=== PATIENT | female | born 1960 | race Caucasian/White ===

== ENCOUNTER 2016-05-30 14:05 | Outpatient (CLI) | payer OTHER ==
[2015-10-19 11:16] VITALS: BP 104/65
== END 2016-05-30 14:15 ==
LOC: LAB 14:05
PROVIDERS: ATTEND Family Medicine
DX: Z51.81 Encounter for therapeutic drug level monitoring (principal); Z79.01 Long term (current) use of anticoagulants
CPT/HCPCS: 36415; 85610

== ENCOUNTER 2016-06-27 13:24 | Outpatient (CLI) | payer OTHER ==
[2015-10-19 11:16] VITALS: BP 104/65
== END 2016-06-27 13:25 ==
LOC: LAB 13:24
PROVIDERS: ATTEND Family Medicine
DX: Z51.81 Encounter for therapeutic drug level monitoring (principal); Z79.01 Long term (current) use of anticoagulants
CPT/HCPCS: 36415; 85610

== ENCOUNTER 2016-06-30 10:10 | Outpatient (CLI) | payer OTHER ==
[2015-10-19 11:16] VITALS: BP 104/65
[2016-06-30 10:24] LABS: BASOPHILS % 0.5 (0.0-1.5); EOSINOPHILS % 2.3 % (0.0-6.8); MEAN CORPUSCULAR HEMOGLOBIN 29.1 pg (28.0-34.0); MONOCYTES # 0.3 # k/uL (0.0-0.9); MONOCYTES % 4.2 % (0.0-11.0); NEUTROPHILS # 4.1 # k/uL (1.4-7.7)
[2016-06-30 11:06] LABS: eGFR (African) 40; eGFR (Non-African) 33
== END 2016-06-30 10:11 ==
LOC: LAB 10:10
PROVIDERS: ATTEND Family Medicine
DX: R60.0 Localized edema (principal); E03.9 Hypothyroidism, unspecified; E55.9 Vitamin D deficiency, unspecified
CPT/HCPCS: 36415; 80053; 82306; 84443; 85025

== ENCOUNTER 2016-07-28 14:36 | Outpatient (CLI) | payer OTHER ==
[2015-10-19 11:16] VITALS: BP 104/65
== END 2016-07-28 14:46 ==
LOC: LAB 14:36
PROVIDERS: ATTEND Family Medicine
DX: Z51.81 Encounter for therapeutic drug level monitoring (principal)
CPT/HCPCS: 36415; 85610

== ENCOUNTER 2016-09-01 14:35 | Outpatient (CLI) | payer OTHER ==
[2015-10-19 11:16] VITALS: BP 104/65
== END 2016-09-01 14:36 ==
LOC: LAB 14:35
PROVIDERS: ATTEND Family Medicine
DX: Z51.81 Encounter for therapeutic drug level monitoring (principal); Z79.01 Long term (current) use of anticoagulants
CPT/HCPCS: 36415; 85610

== ENCOUNTER 2016-09-26 12:20 | Outpatient (CLI) | payer OTHER ==
[2015-10-19 11:16] VITALS: BP 104/65
== END 2016-09-26 12:21 ==
LOC: LAB 12:20
PROVIDERS: ATTEND Family Medicine
DX: Z51.81 Encounter for therapeutic drug level monitoring (principal); Z79.01 Long term (current) use of anticoagulants
CPT/HCPCS: 36415; 85610

== ENCOUNTER 2016-10-17 14:58 | Outpatient (CLI) | payer OTHER ==
[2015-10-19 11:16] VITALS: BP 104/65
== END 2016-10-17 15:00 ==
LOC: LAB 14:58
PROVIDERS: ATTEND Family Medicine
DX: Z51.81 Encounter for therapeutic drug level monitoring (principal)
CPT/HCPCS: 36415; 85610

== ENCOUNTER 2016-10-27 12:48 | Outpatient (CLI) | payer OTHER ==
[2015-10-19 11:16] VITALS: BP 104/65
== END 2016-10-27 12:50 ==
LOC: LAB 12:48
PROVIDERS: ATTEND Family Medicine
DX: Z51.81 Encounter for therapeutic drug level monitoring (principal)
CPT/HCPCS: 36415; 85610

== ENCOUNTER 2016-11-14 12:50 | Outpatient (CLI) | payer OTHER ==
[2015-10-19 11:16] VITALS: BP 104/65
== END 2016-11-14 13:00 ==
LOC: LAB 12:50
PROVIDERS: ATTEND Family Medicine
DX: Z51.81 Encounter for therapeutic drug level monitoring (principal)
CPT/HCPCS: 36415; 85610

== ENCOUNTER → 2016-11-28 | Outpatient (CLI) | payer OTHER ==
[2015-10-19 11:16] VITALS: BP 104/65
== END ==
LOC: LAB 12:03
PROVIDERS: ATTEND Family Medicine
DX: Z79.01 Long term (current) use of anticoagulants (principal)
CPT/HCPCS: 36415; 85610

== ENCOUNTER 2016-12-29 12:49 | Outpatient (CLI) | payer OTHER ==
[2015-10-19 11:16] VITALS: BP 104/65
== END 2016-12-29 12:50 ==
LOC: LAB 12:49
PROVIDERS: ATTEND Family Medicine
DX: Z51.81 Encounter for therapeutic drug level monitoring (principal)
CPT/HCPCS: 36415; 85610

== ENCOUNTER 2017-01-30 14:09 | Outpatient (CLI) | payer OTHER ==
[2015-10-19 11:16] VITALS: BP 104/65
== END 2017-01-30 14:10 ==
LOC: LAB 14:09
PROVIDERS: ATTEND Family Medicine
DX: Z79.899 Other long term (current) drug therapy (principal)
CPT/HCPCS: 36415; 85610

== ENCOUNTER 2017-03-06 11:35 | Outpatient (CLI) | payer OTHER ==
[2015-10-19 11:16] VITALS: BP 104/65
== END 2017-03-06 11:36 ==
LOC: LAB 11:35
PROVIDERS: ATTEND Family Medicine
DX: Z79.01 Long term (current) use of anticoagulants (principal)
CPT/HCPCS: 36415; 85610

== ENCOUNTER 2017-04-07 14:36 | Outpatient (CLI) | payer OTHER ==
[2015-10-19 11:16] VITALS: BP 104/65
== END 2017-04-07 15:00 ==
LOC: LAB 14:36
PROVIDERS: ATTEND Family Medicine
DX: Z51.81 Encounter for therapeutic drug level monitoring (principal)
CPT/HCPCS: 36415; 85610

== ENCOUNTER 2017-04-14 09:42 | Outpatient (CLI) | payer OTHER ==
[2015-10-19 11:16] VITALS: BP 104/65
== END 2017-04-14 09:43 ==
LOC: LAB 09:42
PROVIDERS: ATTEND Family Medicine
DX: Z51.81 Encounter for therapeutic drug level monitoring (principal)
CPT/HCPCS: 36415; 85610

== ENCOUNTER 2017-05-14 13:04 | Outpatient (CLI) | payer OTHER ==
[2015-10-19 11:16] VITALS: BP 104/65
== END 2017-05-14 13:15 ==
LOC: LAB 13:04
PROVIDERS: ATTEND Family Medicine
DX: Z51.81 Encounter for therapeutic drug level monitoring (principal)
CPT/HCPCS: 36415; 85610

== ENCOUNTER → 2017-06-19 | Outpatient (CLI) | payer OTHER ==
[2015-10-19 11:16] VITALS: BP 104/65
== END ==
LOC: LAB 13:45
PROVIDERS: ATTEND Family Medicine
DX: Z51.89 Encounter for other specified aftercare (principal)
CPT/HCPCS: 36415; 85610

== ENCOUNTER 2017-07-03 14:01 | Outpatient (CLI) | payer OTHER ==
[2015-10-19 11:16] VITALS: BP 104/65
== END 2017-07-03 14:02 ==
LOC: LAB 14:01
PROVIDERS: ATTEND Family Medicine
DX: Z51.81 Encounter for therapeutic drug level monitoring (principal)
CPT/HCPCS: 36415; 85610

== ENCOUNTER 2017-08-03 14:19 | Outpatient (CLI) | payer OTHER ==
[2015-10-19 11:16] VITALS: BP 104/65
== END 2017-08-03 14:30 ==
LOC: LAB 14:19
PROVIDERS: ATTEND Family Medicine
DX: Z79.899 Other long term (current) drug therapy (principal)
CPT/HCPCS: 36415; 85610

== ENCOUNTER 2017-08-28 13:20 | Outpatient (CLI) | payer OTHER ==
[2015-10-19 11:16] VITALS: BP 104/65
== END 2017-08-28 13:25 ==
LOC: LAB 13:20
PROVIDERS: ATTEND Family Medicine
DX: Z51.81 Encounter for therapeutic drug level monitoring (principal)
CPT/HCPCS: 36415; 85610

== ENCOUNTER 2017-09-01 14:47 | Outpatient (CLI) | payer OTHER ==
[2015-10-19 11:16] VITALS: BP 104/65
== END 2017-09-01 14:50 ==
LOC: LAB 14:47
PROVIDERS: ATTEND Family Medicine
DX: Z79.899 Other long term (current) drug therapy (principal)
CPT/HCPCS: 36415; 85610

== ENCOUNTER 2017-09-09 13:31 | Outpatient (CLI) | payer OTHER ==
[2015-10-19 11:16] VITALS: BP 104/65
== END 2017-09-09 13:32 ==
LOC: LAB 13:31
PROVIDERS: ATTEND Family Medicine
DX: Z79.899 Other long term (current) drug therapy (principal)
CPT/HCPCS: 36415; 85610

== ENCOUNTER 2017-10-09 11:25 | Outpatient (CLI) | payer OTHER ==
[2015-10-19 11:16] VITALS: BP 104/65
== END 2017-10-09 12:28 ==
LOC: LAB 11:25
PROVIDERS: ATTEND Family Medicine
DX: Z51.81 Encounter for therapeutic drug level monitoring (principal)
CPT/HCPCS: 36415; 85610

== ENCOUNTER 2017-11-09 11:17 | Outpatient (CLI) | payer OTHER ==
[2015-10-19 11:16] VITALS: BP 104/65
[2017-11-09 12:01] LABS: MEAN CORPUSCULAR HEMOGLOBIN 25.5 pg (28.0-34.0); MEAN CORPUSCULAR VOLUME 87.1 fl (80.0-100.0)
[2017-11-09 12:03] LABS: BASOPHILS % 0.7 (0.0-1.5); MONOCYTES % 3.9 % (0.0-11.0)
[2017-11-09 12:04] LABS: NEUTROPHILS # 5.1 # k/uL (1.4-7.7)
[2017-11-09 12:25] LABS: eGFR (African) > 60; eGFR (Non-African) 38
== END 2017-11-09 11:18 ==
LOC: LAB 11:17
PROVIDERS: ATTEND Family Medicine
DX: Z51.81 Encounter for therapeutic drug level monitoring (principal); E03.9 Hypothyroidism, unspecified; R60.0 Localized edema
CPT/HCPCS: 36415; 80048; 84443; 85025; 85610

== ENCOUNTER 2017-11-16 10:29 | Outpatient (CLI) | payer OTHER ==
[2015-10-19 11:16] VITALS: BP 104/65
== END 2017-11-16 10:30 ==
LOC: LAB 10:29
PROVIDERS: ATTEND Family Medicine
DX: Z51.81 Encounter for therapeutic drug level monitoring (principal)
CPT/HCPCS: 36415; 85610

== ENCOUNTER 2017-11-17 13:29 | Outpatient (CLI) | payer OTHER ==
[2015-10-19 11:16] VITALS: BP 104/65
[2017-11-17 13:46] LABS: MEAN CORPUSCULAR HEMOGLOBIN 26.1 pg (28.0-34.0); MEAN CORPUSCULAR VOLUME 84.6 fl (80.0-100.0)
[2017-11-17 22:34] LABS: SERUM IRON 50 ug/dL (37-145)
== END 2017-11-17 13:30 ==
LOC: LAB 13:29
PROVIDERS: ATTEND Family Medicine
DX: D64.9 Anemia, unspecified (principal)
CPT/HCPCS: 36415; 82728; 83540; 83550; 85027

== ENCOUNTER 2017-12-29 13:45 | Outpatient (CLI) | payer OTHER ==
[2015-10-19 11:16] VITALS: BP 104/65
== END 2017-12-29 13:46 ==
LOC: LAB 13:45
PROVIDERS: ATTEND Family Medicine
DX: Z51.81 Encounter for therapeutic drug level monitoring (principal)
CPT/HCPCS: 36415; 85610

== ENCOUNTER 2018-04-30 10:45 | Outpatient (CLI) | payer OTHER ==
[2015-10-19 11:16] VITALS: BP 104/65
== END 2018-04-30 10:55 ==
LOC: LAB 10:45
PROVIDERS: ATTEND Family Medicine
DX: Z79.01 Long term (current) use of anticoagulants (principal)
CPT/HCPCS: 36415; 85610

== ENCOUNTER 2018-05-07 14:28 | Outpatient (CLI) | payer OTHER ==
[2015-10-19 11:16] VITALS: BP 104/65
== END 2018-05-08 14:30 ==
LOC: LAB 14:28
PROVIDERS: ATTEND Family Medicine
DX: Z79.01 Long term (current) use of anticoagulants (principal)
CPT/HCPCS: 36415; 85610

== ENCOUNTER 2018-06-28 12:08 | Outpatient (CLI) | payer OTHER ==
[2015-10-19 11:16] VITALS: BP 104/65
== END 2018-06-28 12:15 ==
LOC: LAB 12:08
PROVIDERS: ATTEND Family Medicine
DX: Z79.01 Long term (current) use of anticoagulants (principal)
CPT/HCPCS: 36415; 85610

== ENCOUNTER 2018-09-02 07:47 | Outpatient (CLI) | payer OTHER ==
[2015-10-19 11:16] VITALS: BP 104/65
[2018-09-02 09:18] LABS: eGFR (Non-African) > 60
[2018-09-02] MEDS ORDERED: MAGNESIUM SULFATE IV ONE (11:30)
[2018-09-02] MEDS ORDERED: SODIUM CHLORIDE 0.9% IV ONE (11:30)
== END 2018-09-02 12:54 ==
LOC: INF 07:47 → LAB 07:47 → INF 12:54
PROVIDERS: ATTEND Internal Medicine
DX: C50.919 Malignant neoplasm of unspecified site of unspecified female breast (principal); E61.2 Magnesium deficiency
CPT/HCPCS: 80053; 83735; 96365; 96366; J3475; J7030; S1016

== ENCOUNTER 2018-09-10 07:54 | Outpatient (CLI) | payer OTHER ==
[2015-10-19 11:16] VITALS: BP 104/65
[2018-09-10 08:43] LABS: eGFR (Non-African) > 60
[2018-09-10] MEDS ORDERED: SODIUM CHLORIDE 0.9% IV ONE (10:15)
[2018-09-10] MEDS ORDERED: MAGNESIUM SULFATE IV ONE (10:15)
== END 2018-09-10 07:55 ==
LOC: INF 07:54
PROVIDERS: ATTEND Internal Medicine
DX: C50.919 Malignant neoplasm of unspecified site of unspecified female breast (principal); E61.2 Magnesium deficiency
CPT/HCPCS: 80053; 83735; 96365; 96366; J3475; J7060; S1016

== ENCOUNTER 2018-10-08 08:01 | Outpatient (CLI) | payer OTHER ==
[2015-10-19 11:16] VITALS: BP 104/65
[2018-10-08 09:19] LABS: eGFR (Non-African) 34
[2018-10-08] MEDS ORDERED: MAGNESIUM SULFATE IV ONE (11:00)
[2018-10-08] MEDS ORDERED: SODIUM CHLORIDE 0.9% IV ONE (11:00)
== END 2018-10-08 08:03 ==
LOC: INF 08:01
PROVIDERS: ATTEND Internal Medicine
DX: E61.2 Magnesium deficiency (principal); C50.919 Malignant neoplasm of unspecified site of unspecified female breast
CPT/HCPCS: 36415; 80053; 83735; 96365; 96366; J3475; J7060

== ENCOUNTER 2018-10-12 08:32 | Outpatient (CLI) | payer OTHER ==
[2015-10-19 11:16] VITALS: BP 104/65
[2018-10-12 09:20] LABS: eGFR (Non-African) 38
[2018-10-12] MEDS ORDERED: MAGNESIUM SULFATE IV ONE (11:00)
[2018-10-12] MEDS ORDERED: SODIUM CHLORIDE 0.9% IV ONE (11:00)
== END 2018-10-12 15:57 | disposition home or self-care (01) ==
LOC: INF 08:32
PROVIDERS: ATTEND Internal Medicine
DX: E61.2 Magnesium deficiency (principal); C50.919 Malignant neoplasm of unspecified site of unspecified female breast
CPT/HCPCS: 36415; 80053; 83735; 96365; 96366; J3475; J7060

== ENCOUNTER 2018-10-15 08:04 | Outpatient (CLI) | payer OTHER ==
[2015-10-19 11:16] VITALS: BP 104/65
[2018-10-15 08:45] LABS: eGFR (Non-African) 44
[2018-10-15] MEDS ORDERED: SODIUM CHLORIDE 0.9% IV ONE (11:00)
[2018-10-15] MEDS ORDERED: MAGNESIUM SULFATE IV ONE (11:00)
[2018-10-15] MEDS ORDERED: POTASSIUM CHLORIDE IV ONE (11:00)
== END 2018-10-15 15:12 | disposition home or self-care (01) ==
LOC: INF 08:04
PROVIDERS: ATTEND Internal Medicine
DX: E61.2 Magnesium deficiency (principal); C50.919 Malignant neoplasm of unspecified site of unspecified female breast
CPT/HCPCS: 36415; 80053; 83735; 96365; 96366; J3475; J3480; J7060

== ENCOUNTER 2018-10-22 08:20 | Outpatient (CLI) | payer OTHER ==
[2015-10-19 11:16] VITALS: BP 104/65
[2018-10-22] MEDS ORDERED: MAGNESIUM SULFATE/D5W 1 GM/100 ML PIGGYBACK IV ONE (10:00)
[2018-11-24 11:38] LABS: eGFR (Non-African) > 60
[2018-11-24 11:39] LABS: MAGNESIUM 0.9 mIU/l (1.6-2.3)
== END 2018-10-22 12:00 ==
LOC: INF 08:20
PROVIDERS: ATTEND Internal Medicine
DX: E61.2 Magnesium deficiency (principal); C50.919 Malignant neoplasm of unspecified site of unspecified female breast
CPT/HCPCS: 80053; 83735; J3475

== ENCOUNTER 2018-10-26 08:10 | Outpatient (CLI) | payer OTHER ==
[2015-10-19 11:16] VITALS: BP 104/65
[2018-10-26] MEDS ORDERED: MAGNESIUM SULFATE/D5W 1 GM/100 ML PIGGYBACK IV ONE (08:48)
[2018-11-14 12:04] LABS: eGFR (Non-African) 44
== END 2018-10-26 15:15 | disposition home or self-care (01) ==
LOC: INF 08:10
PROVIDERS: ATTEND Internal Medicine
DX: E61.2 Magnesium deficiency (principal); C50.919 Malignant neoplasm of unspecified site of unspecified female breast
CPT/HCPCS: 36415; 80053; 83735; 96365; 96366; J3475

== ENCOUNTER 2018-10-29 08:15 | Outpatient (CLI) | payer OTHER ==
[2015-10-19 11:16] VITALS: BP 104/65
[2018-10-29] MEDS ORDERED: MAGNESIUM SULFATE/D5W 1 GM/100 ML PIGGYBACK IV ONE (08:48)
[2018-11-18 11:26] LABS: eGFR (Non-African) 44
== END 2018-10-29 12:50 | disposition home or self-care (01) ==
LOC: INF 08:15
PROVIDERS: ATTEND Internal Medicine
DX: E61.2 Magnesium deficiency (principal); C50.919 Malignant neoplasm of unspecified site of unspecified female breast
CPT/HCPCS: 80053; 83735; J3475

== ENCOUNTER 2018-11-02 09:10 | Outpatient (CLI) | payer OTHER ==
[2015-10-19 11:16] VITALS: BP 104/65
[~2018-11-02 09:10] MED LIST: MAGNESIUM SULFATE/D5W 1 GM/100 ML PIGGYBACK IV ONE
[2018-11-16 15:33] LABS: eGFR (Non-African) 40
== END 2018-11-02 16:18 ==
LOC: INF 09:10
PROVIDERS: ATTEND Internal Medicine
DX: E61.2 Magnesium deficiency (principal); C50.919 Malignant neoplasm of unspecified site of unspecified female breast
CPT/HCPCS: 80053; 83735; J3475

== ENCOUNTER 2018-11-05 08:02 | Outpatient (CLI) | payer OTHER ==
[2015-10-19 11:16] VITALS: BP 104/65
[2018-11-05] MEDS ORDERED: MAGNESIUM SULFATE/D5W 1 GM/100 ML PIGGYBACK IV ONE (08:48)
[2018-11-16 19:11] LABS: MAGNESIUM 0.9 mIU/l (1.6-2.3)
[2018-11-16 19:12] LABS: eGFR (Non-African) > 60
== END 2018-11-05 11:55 ==
LOC: LAB 08:02 → INF 11:55
PROVIDERS: ATTEND Internal Medicine
DX: E61.2 Magnesium deficiency (principal); C50.919 Malignant neoplasm of unspecified site of unspecified female breast
CPT/HCPCS: 80053; 83735; J3475

== ENCOUNTER 2018-11-19 08:21 | Outpatient (CLI) | payer OTHER ==
[2015-10-19 11:16] VITALS: BP 104/65
[2018-11-19 09:21] LABS: eGFR (Non-African) 42
[2018-11-19] MEDS ORDERED: MAGNESIUM SULFATE/D5W 200 ML IV ONE (10:00)
== END 2018-11-19 11:40 ==
LOC: INF 08:21
PROVIDERS: ATTEND Internal Medicine
DX: C50.919 Malignant neoplasm of unspecified site of unspecified female breast (principal); E61.2 Magnesium deficiency
CPT/HCPCS: 36415; 80053; 83735; 85610; J3475

== ENCOUNTER 2018-11-24 08:41 | Outpatient (CLI) | payer OTHER ==
[2015-10-19 11:16] VITALS: BP 104/65
[2018-11-24 09:18] LABS: eGFR (Non-African) 37
[2018-11-24 09:35] LABS: MAGNESIUM 0.6 mIU/l (1.6-2.3)
[2018-11-24] MEDS ORDERED: MAGNESIUM SULFATE IV ONE (10:00)
[2018-11-24] MEDS ORDERED: D5W IV ONE (10:00)
== END 2018-11-24 13:50 | disposition home or self-care (01) ==
LOC: INF 08:41
PROVIDERS: ATTEND Internal Medicine
DX: C50.919 Malignant neoplasm of unspecified site of unspecified female breast (principal); E61.2 Magnesium deficiency
CPT/HCPCS: 36415; 80053; 83735; 96374; 96375; 96376; J3475

== ENCOUNTER 2018-11-26 08:11 | Outpatient (CLI) | payer OTHER ==
[2015-10-19 11:16] VITALS: BP 104/65
[2018-11-26 08:45] LABS: MAGNESIUM 1.3 mIU/l (1.6-2.3); eGFR (Non-African) 36
== END 2018-11-26 11:20 | disposition home or self-care (01) ==
LOC: LAB 08:11 → INF 11:20
PROVIDERS: ATTEND Internal Medicine
DX: C50.919 Malignant neoplasm of unspecified site of unspecified female breast (principal); E61.2 Magnesium deficiency
CPT/HCPCS: 36415; 80053; 83735; 96374; 96375; 96376; J3475

== ENCOUNTER 2018-11-30 09:05 | Outpatient (CLI) | payer OTHER ==
[2015-10-19 11:16] VITALS: BP 104/65
[2018-11-30 09:50] LABS: MAGNESIUM 1.2 mIU/l (1.6-2.3); eGFR (Non-African) 39
[2018-11-30] MEDS ORDERED: MAGNESIUM SULFATE/D5W 1 GM/100 ML PIGGYBACK IV ONE (11:00)
== END 2018-11-30 12:42 | disposition home or self-care (01) ==
LOC: INF 09:05
PROVIDERS: ATTEND Internal Medicine
DX: C50.919 Malignant neoplasm of unspecified site of unspecified female breast (principal); E61.2 Magnesium deficiency
CPT/HCPCS: 36415; 80053; 83735; 96374; 96375; 96376; J3475; S1016

== ENCOUNTER 2018-12-03 08:19 | Outpatient (CLI) | payer OTHER ==
[2015-10-19 11:16] VITALS: BP 104/65
[2018-12-03 09:32] LABS: MAGNESIUM 1.1 mIU/l (1.6-2.3); eGFR (Non-African) 41
[2018-12-03] MEDS ORDERED: MAGNESIUM SULFATE/D5W 1 GM/100 ML PIGGYBACK IV ONE (09:46)
== END 2018-12-03 11:55 | disposition home or self-care (01) ==
LOC: INF 08:19
PROVIDERS: ATTEND Internal Medicine
DX: C50.919 Malignant neoplasm of unspecified site of unspecified female breast (principal); E61.2 Magnesium deficiency
CPT/HCPCS: 36415; 80053; 83735; 96374; 96375; 96376; J3475

== ENCOUNTER 2019-03-21 09:17 | Outpatient (CLI) | payer OTHER ==
[2015-10-19 11:16] VITALS: BP 104/65
[2019-03-21] MEDS ORDERED: MAGNESIUM SULFATE IV ONE (12:00)
[2019-03-21] MEDS ORDERED: SODIUM CHLORIDE 0.9% IV ONE (12:00)
== END 2019-03-21 14:24 | disposition home or self-care (01) ==
LOC: INF 09:17
PROVIDERS: ATTEND Internal Medicine
DX: Z51.81 Encounter for therapeutic drug level monitoring (principal); Z79.01 Long term (current) use of anticoagulants; I48.91 Unspecified atrial fibrillation
CPT/HCPCS: 36415; 83735; 85610; J3475; J7060; S1016

== ENCOUNTER 2019-04-04 08:56 | Outpatient (CLI) | payer OTHER ==
[2015-10-19 11:16] VITALS: BP 104/65
[2019-04-04] MEDS ORDERED: MAGNESIUM SULFATE/D5W 1 GM/100 ML PIGGYBACK IV ONE (12:00)
== END 2019-04-04 14:20 ==
LOC: INF 08:56
PROVIDERS: ATTEND Internal Medicine
DX: C50.919 Malignant neoplasm of unspecified site of unspecified female breast (principal)
CPT/HCPCS: 83735; J3475; S1016

== ENCOUNTER 2019-04-11 08:39 | Outpatient (CLI) | payer OTHER ==
[2015-10-19 11:16] VITALS: BP 104/65
[2019-04-11] MEDS ORDERED: HEPARIN SODIUM 500 UNIT/5 ML DISP.SYRIN IV ONE (12:14)
[2019-04-11] MEDS ORDERED: SODIUM CHLORIDE 0.9% IV ONE (12:30)
[2019-04-11] MEDS ORDERED: MAGNESIUM SULFATE IV ONE (12:30)
== END 2019-04-11 16:45 | disposition home or self-care (01) ==
LOC: INF 08:39
PROVIDERS: ATTEND Internal Medicine
DX: Z51.81 Encounter for therapeutic drug level monitoring (principal); Z79.01 Long term (current) use of anticoagulants; I48.91 Unspecified atrial fibrillation
CPT/HCPCS: 36415; 83735; 85610; J1642; J3475; J7060; S1016

== ENCOUNTER 2019-06-02 14:10 | Outpatient (CLI) | payer OTHER ==
[2015-10-19 11:16] VITALS: BP 104/65
== END 2019-06-02 14:15 ==
LOC: LAB 14:10
PROVIDERS: ATTEND Internal Medicine Clinical Cardiac Electrophysiology
DX: I48.91 Unspecified atrial fibrillation (principal); Z79.01 Long term (current) use of anticoagulants
CPT/HCPCS: 36415; 85610